=== PATIENT | male | born 1940 | race Caucasian/White ===

== ENCOUNTER 2017-05-16 18:14 | Inpatient (IN) | payer MEDICARE, OTHER ==
[2017-05-16 19:16] LABS: ADD MAN DIFF? NO
[2017-05-16 19:17] LABS: WHITE BLOOD COUNT 10.5 10^3/ul (4.8-10.8)
[2017-05-16 19:17] LABS: BASOPHIL # 0.1 10^3/ul (0.0-0.1); BASOPHILS % 0.6 % (0.0-2.0); EOSINOPHILS # 0.2 10^3/ul (0.0-0.5); EOSINOPHILS % 1.8 % (0.0-7.0); HEMATOCRIT 39.6 % (42.0-52.0); HEMOGLOBIN 13.2 g/dl (14.0-18.0); LYMPHOCYTES # 1.4 10^3/ul (0.8-2.9); LYMPHOCYTES % 13.7 % (15.0-51.0); MEAN CORPUSCULAR HEMOGLOBIN 31.4 pg (29.0-33.0); MEAN CORPUSCULAR HGB CONC 33.3 g/dl (32.0-37.0); MEAN CORPUSCULAR VOLUME 94.3 fl (82.0-101.0); MEAN PLATELET VOLUME 10.1 fl (7.4-10.4); MONOCYTE # 1.1 10^3/ul (0.3-0.9); MONOCYTES % 10.6 % (0.0-11.0); NEUTROPHIL # 7.7 10^3/ul (1.6-7.5); PLATELET COUNT 183 10^3/UL (140-415); RED CELL DISTRIBUTION WIDTH 12.7 % (11.5-14.5)
[2017-05-16] MEDS: SOD CHLORIDE 0.9% 1,000 ML IV ×3 (19:17→21:56)
[2017-05-16] MEDS: HYDROmorphONE 1 MG/ML SYG IV ×2 (19:17→21:56)
[2017-05-16] MEDS: LIDOCAINE 1% (MDV) 20 ML INJ SC (19:30)
[2017-05-16 19:33] LABS: INR 1.07; PT RATIO 1.1
[2017-05-16 19:35] LABS: ALANINE AMINOTRANSFERASE 29 IU/L (13-69); ALBUMIN 4.3 g/dl (3.3-4.9); ALBUMIN/GLOBULIN RATIO 1.34; ALKALINE PHOSPHATASE 65 IU/L (42-121); ANION GAP 16 (8-16); ASPARTATE AMINO TRANSFERASE 25 IU/L (15-46); BILIRUBIN,INDIRECT 1.2 mg/dl (0-1.1); BILIRUBIN,TOTAL 1.2 mg/dl (0.2-1.3); BLOOD UREA NITROGEN 27 mg/dl (7-20); CALCIUM 9.5 mg/dl (8.4-10.2); CARBON DIOXIDE 25 mmol/L (21-31); CHLORIDE 102 mmol/L (97-110); CREATININE 0.99 mg/dl (0.61-1.24); GLUCOSE 125 mg/dl (70-220); LIPASE 51 U/L (23-300); POTASSIUM 4.5 mmol/L (3.5-5.1); SODIUM 138 mmol/L (135-144); TOTAL PROTEIN 7.5 g/dl (6.1-8.1)
[2017-05-16 19:49] LABS: TROPONIN-I < 0.012 ng/ml (0.00-0.12)
[2017-05-16] MEDS ORDERED: FENTAnyl 50 MCG/ML VIAL (20:12)
[2017-05-16] MEDS ORDERED: LORAZEPAM 2 MG INJ (20:48)
[2017-05-16] MEDS: SOD CHLORIDE 0.9% 100 ML (21:05)
[2017-05-16] MEDS: IOHEXOL 100 ML (21:05)
[2017-05-16] MEDS: CEFTRIAXONE 1 GM/50 ML (PMX) 50 ML IVPB (21:35)
[2017-05-16] MEDS: FENTAnyl 50 MCG/ML VIAL IV ×2 (22:02→22:03)
[2017-05-16] MEDS: LORAZEPAM 2 MG INJ IV (22:02)
[2017-05-16] MEDS ORDERED: ONDANSETRON 4 MG INJ IV (22:30)
[2017-05-16] MEDS ORDERED: ACETAMINOPHEN 650MG/20.3ML CUP PO (22:30)
[2017-05-16] MEDS ORDERED: morphine 2 MG INJ IV (22:30)
[2017-05-17] MEDS: SOD CHLORIDE 0.9% 1,000 ML IV ×3 (00:08→16:51)
[2017-05-17] MEDS: PROPOFOL 100 ML IV (00:13)
[2017-05-17] MEDS: NACL 0.9% 3 ML SYG IV ×2 (00:14→20:47)
[2017-05-17] MEDS: SOD CHLORIDE 0.9% 100 ML (00:17)
[2017-05-17] MEDS: IOHEXOL 100 ML (00:49)
[2017-05-17] MEDS: HYDROmorphONE 0.5 MG/0.5 ML SYG IV ×7 (01:27→23:45)
[2017-05-17 01:29] LABS: HEMATOCRIT 27.1 % (42.0-52.0); HEMOGLOBIN 8.9 g/dl (14.0-18.0)
[2017-05-17 05:46] LABS: ADD MAN DIFF? NO
[2017-05-17 05:56] LABS: WHITE BLOOD COUNT 12.3 10^3/ul (4.8-10.8)
[2017-05-17 05:56] LABS: BASOPHILS % 0.3 % (0.0-2.0); EOSINOPHILS # 0.1 10^3/ul (0.0-0.5); EOSINOPHILS % 0.5 % (0.0-7.0); HEMATOCRIT 25.2 % (42.0-52.0); HEMOGLOBIN 8.5 g/dl (14.0-18.0); LYMPHOCYTES # 0.8 10^3/ul (0.8-2.9); LYMPHOCYTES % 6.7 % (15.0-51.0); MEAN CORPUSCULAR HEMOGLOBIN 32.3 pg (29.0-33.0); MEAN CORPUSCULAR HGB CONC 33.7 g/dl (32.0-37.0); MEAN CORPUSCULAR VOLUME 95.8 fl (82.0-101.0); MEAN PLATELET VOLUME 10.4 fl (7.4-10.4); MONOCYTE # 1.4 10^3/ul (0.3-0.9); MONOCYTES % 11.6 % (0.0-11.0); NEUTROPHIL # 9.9 10^3/ul (1.6-7.5); NEUTROPHILS % 80.5 % (39.0-77.0); PLATELET COUNT 159 10^3/UL (140-415); RED BLOOD COUNT 2.63 10^6/ul (4.70-6.10)
[2017-05-17 06:11] LABS: ALANINE AMINOTRANSFERASE 36 IU/L (13-69); ALBUMIN 2.6 g/dl (3.3-4.9); ALBUMIN/GLOBULIN RATIO 1.08; ALKALINE PHOSPHATASE 39 IU/L (42-121); ANION GAP 12 (8-16); ASPARTATE AMINO TRANSFERASE 20 IU/L (15-46); BILIRUBIN,INDIRECT 0.6 mg/dl (0-1.1); BILIRUBIN,TOTAL 0.6 mg/dl (0.2-1.3); BLOOD UREA NITROGEN 25 mg/dl (7-20); CALCIUM 7.2 mg/dl (8.4-10.2); CARBON DIOXIDE 21 mmol/L (21-31); CHLORIDE 111 mmol/L (97-110); GLUCOSE 119 mg/dl (70-220); POTASSIUM 5.3 mmol/L (3.5-5.1); SODIUM 139 mmol/L (135-144)
[2017-05-17 06:17] LABS: PHOSPHORUS 3.7 mg/dl (2.5-4.9)
[2017-05-17 06:17] LABS: MAGNESIUM 1.7 mg/dl (1.7-2.5)
[2017-05-17 07:58] LABS: AADO2 Arterial 116.2 mmHg (7.0-24.0); Allen Test ACCEPTAB; Arterial Base Excess -5.2 mmol/L (-3.0-3); Arterial Blood Gas Oxygen Sat 93.3 mmHG (95.0-100.0); Arterial COHb 0.3 % (0.0-3.0); Arterial Fraction of Oxyhgb 92.8 % (93.0-99.0); Arterial HCO3 20.5 mmol/L (22.0-26.0); Arterial MetHb 0.2 % (0.0-1.5); Arterial Total Hemglobin 9.9 g/dl (12.0-18.0); Arterial pCO2 40.4 mmhg (35-45); MODE NASAL CANNULA; Site Left Radial
[2017-05-17] MEDS: MAGNESIUM SULFATE 2 GM/50 ML 50 ML IVPB (10:44)
[2017-05-17 11:56] LABS: ADD UMIC NO; UR ASCORBIC ACID NEGATIVE (NEGATIVE); UR BILIRUBIN (Dip) NEGATIVE (NEGATIVE); UR BLOOD (Dip) NEGATIVE (NEGATIVE); UR CLARITY CLEAR (CLEAR); UR COLOR YELLOW (YELLOW); UR GLUCOSE (Dip) NEGATIVE (NEGATIVE); UR KETONES (Dip) 1+ mg/dL (NEGATIVE); UR LEUKOCYTE ESTERASE (Dip) NEGATIVE Leu/ul (NEGATIVE); UR NITRITE (Dip) NEGATIVE (NEGATIVE); UR SPECIFIC GRAVITY (Dip) 1.035 (1.003-1.030); UR TOTAL PROTEIN (Dip) NEGATIVE (NEGATIVE); UR UROBILINOGEN (Dip) NEGATIVE (NEGATIVE)
[2017-05-17] MEDS: DIPHENHYDRAMINE 50 MG CAP PO ×2 (14:50→20:46)
[2017-05-17 17:04] LABS: TYPE AND SCREEN 1
[2017-05-17 20:32] LABS: HEMATOCRIT 22.9 % (42.0-52.0); HEMOGLOBIN 7.9 g/dl (14.0-18.0)
[2017-05-17] MEDS: CEFTRIAXONE 1 GM/50 ML (PMX) 50 ML IVPB (20:45)
[2017-05-17] MEDS: MAGNESIUM HYDROXIDE 30ML CUP PO (20:46)
[2017-05-17] MEDS: ROSUVASTATIN CALCIUM 40 MG TABLET PO (22:49)
[2017-05-18] MEDS: SOD CHLORIDE 0.9% 1,000 ML IV ×3 (02:54→15:59)
[2017-05-18] MEDS: HYDROmorphONE 0.5 MG/0.5 ML SYG IV ×6 (02:58→21:12)
[2017-05-18] MEDS: DIPHENHYDRAMINE 50 MG CAP PO ×3 (02:58→20:25)
[2017-05-18 06:21] LABS: ADD MAN DIFF? NO
[2017-05-18 06:27] LABS: BASOPHIL # 0.1 10^3/ul (0.0-0.1); BASOPHILS % 0.5 % (0.0-2.0); EOSINOPHILS # 0.3 10^3/ul (0.0-0.5); EOSINOPHILS % 3.3 % (0.0-7.0); HEMATOCRIT 25.2 % (42.0-52.0); HEMOGLOBIN 8.5 g/dl (14.0-18.0); LYMPHOCYTES # 1.1 10^3/ul (0.8-2.9); LYMPHOCYTES % 11.9 % (15.0-51.0); MEAN CORPUSCULAR HEMOGLOBIN 31.6 pg (29.0-33.0); MEAN CORPUSCULAR HGB CONC 33.7 g/dl (32.0-37.0); MEAN CORPUSCULAR VOLUME 93.7 fl (82.0-101.0); MEAN PLATELET VOLUME 9.7 fl (7.4-10.4); MONOCYTES % 10.5 % (0.0-11.0); NEUTROPHIL # 6.7 10^3/ul (1.6-7.5); PLATELET COUNT 150 10^3/UL (140-415); RED BLOOD COUNT 2.69 10^6/ul (4.70-6.10); RED CELL DISTRIBUTION WIDTH 14.2 % (11.5-14.5)
[2017-05-18 06:27] LABS: WHITE BLOOD COUNT 9.2 10^3/ul (4.8-10.8)
[2017-05-18 07:03] LABS: ALANINE AMINOTRANSFERASE 33 IU/L (13-69); ALBUMIN 2.5 g/dl (3.3-4.9); ALBUMIN/GLOBULIN RATIO 1.04; ALKALINE PHOSPHATASE 45 IU/L (42-121); ANION GAP 9 (8-16); ASPARTATE AMINO TRANSFERASE 28 IU/L (15-46); BILIRUBIN,INDIRECT 0.8 mg/dl (0-1.1); BILIRUBIN,TOTAL 0.8 mg/dl (0.2-1.3); BLOOD UREA NITROGEN 20 mg/dl (7-20); CALCIUM 7.3 mg/dl (8.4-10.2); CARBON DIOXIDE 26 mmol/L (21-31); CHLORIDE 107 mmol/L (97-110); CREATININE 0.72 mg/dl (0.61-1.24); GLUCOSE 106 mg/dl (70-220); POTASSIUM 4.5 mmol/L (3.5-5.1); SODIUM 137 mmol/L (135-144); TOTAL PROTEIN 4.9 g/dl (6.1-8.1)
[2017-05-18] MEDS: ALTEPLASE (CATHFLO) 2 MG INJ CATHETER (12:33)
[2017-05-18 14:20] LABS: HEMATOCRIT 27.7 % (42.0-52.0); HEMOGLOBIN 9.4 g/dl (14.0-18.0)
[2017-05-18] MEDS: MAGNESIUM HYDROXIDE 30ML CUP PO (20:25)
[2017-05-18] MEDS: CEFTRIAXONE 1 GM/50 ML (PMX) 50 ML IVPB (20:25)
[2017-05-18] MEDS: ROSUVASTATIN CALCIUM 40 MG TABLET PO (20:25)
[2017-05-18] MEDS: DOCUSATE SODIUM 100 MG CAP PO (20:27)
[2017-05-18] MEDS: NACL 0.9% 3 ML SYG IV (20:33)
[2017-05-18 22:09] LABS: HEMATOCRIT 24.8 % (42.0-52.0); HEMOGLOBIN 8.6 g/dl (14.0-18.0)
[2017-05-19] MEDS: HYDROmorphONE 0.5 MG/0.5 ML SYG IV ×5 (00:25→16:36)
[2017-05-19] MEDS: SOD CHLORIDE 0.9% 1,000 ML IV ×3 (01:03→17:18)
[2017-05-19 04:54] LABS: AADO2 Arterial 90.9 mmHg (7.0-24.0); Allen Test ACCEPTAB; Arterial Base Excess -2.1 mmol/L (-3.0-3); Arterial Blood Gas Oxygen Sat 91.3 mmHG (95.0-100.0); Arterial COHb 0.3 % (0.0-3.0); Arterial Fraction of Oxyhgb 90.8 % (93.0-99.0); Arterial HCO3 21.8 mmol/L (22.0-26.0); Arterial MetHb 0.3 % (0.0-1.5); Arterial Total Hemglobin 8.7 g/dl (12.0-18.0); Arterial pCO2 33.8 mmhg (35-45); MODE NASAL CANNULA; Site Left Radial
[2017-05-19 06:16] LABS: ADD MAN DIFF? NO
[2017-05-19 06:20] LABS: BASOPHILS % 0.4 % (0.0-2.0); EOSINOPHILS # 0.4 10^3/ul (0.0-0.5); EOSINOPHILS % 3.9 % (0.0-7.0); HEMATOCRIT 24.8 % (42.0-52.0); HEMOGLOBIN 8.4 g/dl (14.0-18.0); LYMPHOCYTES # 0.9 10^3/ul (0.8-2.9); LYMPHOCYTES % 10.3 % (15.0-51.0); MEAN CORPUSCULAR HEMOGLOBIN 31.7 pg (29.0-33.0); MEAN CORPUSCULAR HGB CONC 33.9 g/dl (32.0-37.0); MEAN CORPUSCULAR VOLUME 93.6 fl (82.0-101.0); MEAN PLATELET VOLUME 9.4 fl (7.4-10.4); MONOCYTE # 0.7 10^3/ul (0.3-0.9); MONOCYTES % 7.4 % (0.0-11.0); NEUTROPHILS % 77.6 % (39.0-77.0); PLATELET COUNT 153 10^3/UL (140-415); RED BLOOD COUNT 2.65 10^6/ul (4.70-6.10); RED CELL DISTRIBUTION WIDTH 13.6 % (11.5-14.5)
[2017-05-19 06:42] LABS: ANION GAP 9 (8-16); BLOOD UREA NITROGEN 14 mg/dl (7-20); CALCIUM 7.3 mg/dl (8.4-10.2); CARBON DIOXIDE 24 mmol/L (21-31); CHLORIDE 108 mmol/L (97-110); CREATININE 0.66 mg/dl (0.61-1.24); GLUCOSE 99 mg/dl (70-220); POTASSIUM 4.5 mmol/L (3.5-5.1); SODIUM 136 mmol/L (135-144)
[2017-05-19] MEDS: DIPHENHYDRAMINE 50 MG CAP PO ×4 (09:04→22:30)
[2017-05-19] MEDS: DOCUSATE SODIUM 100 MG CAP PO ×2 (09:04→21:00)
[2017-05-19 13:41] LABS: HEMATOCRIT 24.5 % (42.0-52.0); HEMOGLOBIN 8.6 g/dl (14.0-18.0)
[2017-05-19 19:37] LABS: IMMEDIATE SPIN CROSSMATCH 1 4
[2017-05-19 20:27] LABS: ADD UMIC NO; UR ASCORBIC ACID NEGATIVE (NEGATIVE); UR BILIRUBIN (Dip) NEGATIVE (NEGATIVE); UR BLOOD (Dip) NEGATIVE (NEGATIVE); UR CLARITY CLEAR (CLEAR); UR COLOR YELLOW (YELLOW); UR GLUCOSE (Dip) NEGATIVE (NEGATIVE); UR KETONES (Dip) 1+ mg/dL (NEGATIVE); UR LEUKOCYTE ESTERASE (Dip) NEGATIVE Leu/ul (NEGATIVE); UR NITRITE (Dip) NEGATIVE (NEGATIVE); UR SPECIFIC GRAVITY (Dip) 1.012 (1.003-1.030); UR TOTAL PROTEIN (Dip) NEGATIVE (NEGATIVE); UR UROBILINOGEN (Dip) NEGATIVE (NEGATIVE)
[2017-05-19] MEDS: ROSUVASTATIN CALCIUM 40 MG TABLET PO (21:18)
[2017-05-19] MEDS: CEFTRIAXONE 1 GM/50 ML (PMX) 50 ML IVPB (21:19)
[2017-05-20] MEDS: HYDROmorphONE 0.5 MG/0.5 ML SYG IV ×5 (02:06→20:14)
[2017-05-20 03:38] LABS: ADD MAN DIFF? NO
[2017-05-20 04:01] LABS: ALANINE AMINOTRANSFERASE 52 IU/L (13-69); ALBUMIN 2.5 g/dl (3.3-4.9); ALKALINE PHOSPHATASE 51 IU/L (42-121); ANION GAP 9 (8-16); ASPARTATE AMINO TRANSFERASE 61 IU/L (15-46); BILIRUBIN,INDIRECT 0.6 mg/dl (0-1.1); BILIRUBIN,TOTAL 0.6 mg/dl (0.2-1.3); BLOOD UREA NITROGEN 14 mg/dl (7-20); CALCIUM 7.7 mg/dl (8.4-10.2); CARBON DIOXIDE 23 mmol/L (21-31); CHLORIDE 109 mmol/L (97-110); CREATININE 0.79 mg/dl (0.61-1.24); GLUCOSE 102 mg/dl (70-220); POTASSIUM 4.5 mmol/L (3.5-5.1); SODIUM 136 mmol/L (135-144)
[2017-05-20 04:33] LABS: BASOPHILS % 0.4 % (0.0-2.0); EOSINOPHILS # 0.7 10^3/ul (0.0-0.5); EOSINOPHILS % 7.8 % (0.0-7.0); HEMATOCRIT 27.2 % (42.0-52.0); HEMOGLOBIN 9.6 g/dl (14.0-18.0); LYMPHOCYTES # 1.1 10^3/ul (0.8-2.9); MEAN CORPUSCULAR HGB CONC 35.3 g/dl (32.0-37.0); MEAN CORPUSCULAR VOLUME 90.7 fl (82.0-101.0); MEAN PLATELET VOLUME 9.8 fl (7.4-10.4); MONOCYTE # 0.8 10^3/ul (0.3-0.9); MONOCYTES % 9.3 % (0.0-11.0); NEUTROPHIL # 6.3 10^3/ul (1.6-7.5); NEUTROPHILS % 70.1 % (39.0-77.0); PLATELET COUNT 180 10^3/UL (140-415); RED CELL DISTRIBUTION WIDTH 14.1 % (11.5-14.5)
[2017-05-20] MEDS: SOD CHLORIDE 0.9% 1,000 ML IV (04:59)
[2017-05-20] MEDS: PANTOPRAZOLE (EC) 40 MG TAB PO (06:09)
[2017-05-20 06:18] LABS: ANION GAP 8 (8-16); BLOOD UREA NITROGEN 14 mg/dl (7-20); CARBON DIOXIDE 24 mmol/L (21-31); CHLORIDE 107 mmol/L (97-110); CREATININE 0.76 mg/dl (0.61-1.24); GLUCOSE 103 mg/dl (70-220); POTASSIUM 4.7 mmol/L (3.5-5.1); SODIUM 134 mmol/L (135-144)
[2017-05-20] MEDS ORDERED: DEXAMETHASONE 4 MG/ML 1 ML INJ ×2 (07:00→22:27)
[2017-05-20] MEDS ORDERED: BUPIVACAINE 0.25%/EPI (MDV) 50 ML VIAL INJ (07:00)
[2017-05-20] MEDS ORDERED: ROCURONIUM 50 MG INJ ×2 (07:00→18:02)
[2017-05-20] MEDS: DIPHENHYDRAMINE 50 MG INJ IV ×2 (07:56→16:39)
[2017-05-20] MEDS: DOCUSATE SODIUM 100 MG CAP PO ×2 (09:00→20:15)
[2017-05-20] MEDS: DEXTROSE 5%-0.9% NACL 1,000 ML IV (09:27)
[2017-05-20] MEDS ORDERED: BUPIVACAINE 0.5% (SDV) 30 ML INJ (16:35)
[2017-05-20] MEDS ORDERED: LIDOCAINE 1%/EPI 30 ML INJ (16:36)
[2017-05-20] MEDS ORDERED: LIDOCAINE 0.5% (MDV) 50 ML INJ (16:39)
[2017-05-20] MEDS ORDERED: MINERAL OIL LIGHT 10 ML VIAL (16:46)
[2017-05-20] MEDS ORDERED: PROPOFOL 20 ML (18:02)
[2017-05-20] MEDS ORDERED: MIDAZOLAM 1 MG/ML 2 ML INJ (18:02)
[2017-05-20] MEDS ORDERED: LIDOCAINE 2% (SDV) 5 ML INJ (18:02)
[2017-05-20] MEDS: DIPHENHYDRAMINE 50 MG CAP PO (20:15)
[2017-05-20] MEDS: ROSUVASTATIN CALCIUM 40 MG TABLET PO (20:15)
[2017-05-20] MEDS: CEFTRIAXONE 1 GM/50 ML (PMX) 50 ML IVPB (20:15)
[2017-05-20] MEDS ORDERED: PHENYLephrine (100 MCG/ML) 5ML SYG ×3 (21:42→22:39)
[2017-05-20] MEDS ORDERED: ONDANSETRON 4 MG INJ (21:47)
[2017-05-20] MEDS ORDERED: FAMOTIDINE 20 MG INJ (21:47)
[2017-05-20] MEDS ORDERED: FENTAnyl 50 MCG/ML VIAL (21:57)
[2017-05-20] MEDS ORDERED: METOPROLOL 5 MG INJ (22:56)
[2017-05-20 23:01] LABS: IMMEDIATE SPIN CROSSMATCH 1 2
[2017-05-20] MEDS ORDERED: SUGAMMADEX SODIUM 200 MG/2 ML VIAL IV (23:43)
[2017-05-21] MEDS ORDERED: FENTAnyl 50 MCG/ML VIAL ×2 (00:02→00:09)
[2017-05-21] MEDS ORDERED: ACETAMINOPHEN 1000MG/100ML IV 100 ML (00:11)
[2017-05-21] MEDS ORDERED: MIDAZOLAM 1 MG/ML 2 ML INJ (00:15)
[2017-05-21] MEDS: DEXTROSE 5%-0.9% NACL 1,000 ML IV ×2 (00:58→20:29)
[2017-05-21] MEDS ORDERED: HYDROmorphONE 0.5 MG/0.5 ML SYG IV (01:00)
[2017-05-21] MEDS ORDERED: LABETALOL HCL 20MG INJ IV (01:00)
[2017-05-21] MEDS ORDERED: ONDANSETRON 4 MG INJ IV (01:00)
[2017-05-21] MEDS ORDERED: MEPERIDINE 25 MG INJ IV (01:00)
[2017-05-21] MEDS ORDERED: HALOPERIDOL 5 MG INJ IV (01:00)
[2017-05-21] MEDS: ALBUTEROL/IPRATROPIUM (NEB) 3 ML AMP NEB (01:16)
[2017-05-21] MEDS: DIPHENHYDRAMINE 50 MG INJ IV ×2 (05:37→23:32)
[2017-05-21] MEDS: hydrALAzine 20 MG INJ IV (05:38)
[2017-05-21 06:07] LABS: ADD MAN DIFF? NO
[2017-05-21] MEDS: HYDROmorphONE 0.5 MG/0.5 ML SYG IV ×7 (06:20→23:33)
[2017-05-21 06:21] LABS: ABNORMAL IP MESSAGE 1; BASOPHILS % 0.2 % (0.0-2.0); HEMATOCRIT 34.4 % (42.0-52.0); HEMOGLOBIN 12.5 g/dl (14.0-18.0); LYMPHOCYTES # 0.3 10^3/ul (0.8-2.9); LYMPHOCYTES % 2.7 % (15.0-51.0); MEAN CORPUSCULAR HEMOGLOBIN 31.2 pg (29.0-33.0); MEAN CORPUSCULAR HGB CONC 36.3 g/dl (32.0-37.0); MEAN CORPUSCULAR VOLUME 85.8 fl (82.0-101.0); MEAN PLATELET VOLUME 9.4 fl (7.4-10.4); MONOCYTE # 0.3 10^3/ul (0.3-0.9); MONOCYTES % 2.5 % (0.0-11.0); NEUTROPHIL # 12.1 10^3/ul (1.6-7.5); NEUTROPHILS % 94.2 % (39.0-77.0); PLATELET COUNT 201 10^3/UL (140-415); POSITIVE DIFF @See below; RED BLOOD COUNT 4.01 10^6/ul (4.70-6.10); RED CELL DISTRIBUTION WIDTH 15.1 % (11.5-14.5)
[2017-05-21 06:21] LABS: WHITE BLOOD COUNT 12.8 10^3/ul (4.8-10.8)
[2017-05-21 06:59] LABS: PHOSPHORUS 2.9 mg/dl (2.5-4.9)
[2017-05-21 06:59] LABS: MAGNESIUM 1.7 mg/dl (1.7-2.5)
[2017-05-21 07:13] LABS: ALANINE AMINOTRANSFERASE 46 IU/L (13-69); ALBUMIN 2.5 g/dl (3.3-4.9); ALBUMIN/GLOBULIN RATIO 0.83; ALKALINE PHOSPHATASE 58 IU/L (42-121); ANION GAP 11 (8-16); ASPARTATE AMINO TRANSFERASE 39 IU/L (15-46); BILIRUBIN,INDIRECT 0.9 mg/dl (0-1.1); BILIRUBIN,TOTAL 0.9 mg/dl (0.2-1.3); BLOOD UREA NITROGEN 13 mg/dl (7-20); CALCIUM 8.6 mg/dl (8.4-10.2); CARBON DIOXIDE 21 mmol/L (21-31); CHLORIDE 108 mmol/L (97-110); CREATININE 0.67 mg/dl (0.61-1.24); GLUCOSE 152 mg/dl (70-220); POTASSIUM 4.9 mmol/L (3.5-5.1); SODIUM 135 mmol/L (135-144); TOTAL PROTEIN 5.5 g/dl (6.1-8.1)
[2017-05-21] MEDS: PANTOPRAZOLE (EC) 40 MG TAB PO (09:25)
[2017-05-21] MEDS: DOCUSATE SODIUM 100 MG CAP PO ×2 (09:25→20:30)
[2017-05-21] MEDS: DIPHENHYDRAMINE 50 MG CAP PO (20:30)
[2017-05-21] MEDS: ROSUVASTATIN CALCIUM 40 MG TABLET PO (20:30)
[2017-05-21] MEDS: CEFTRIAXONE 1 GM/50 ML (PMX) 50 ML IVPB (20:30)
[2017-05-22] MEDS: HYDROmorphONE 0.5 MG/0.5 ML SYG IV ×7 (04:49→23:01)
[2017-05-22 04:57] LABS: ADD MAN DIFF? NO
[2017-05-22 05:03] LABS: ABNORMAL IP MESSAGE 1; BASOPHIL # 0.1 10^3/ul (0.0-0.1); BASOPHILS % 0.5 % (0.0-2.0); EOSINOPHILS # 0.2 10^3/ul (0.0-0.5); EOSINOPHILS % 1.3 % (0.0-7.0); HEMATOCRIT 34.9 % (42.0-52.0); LYMPHOCYTES # 1.2 10^3/ul (0.8-2.9); LYMPHOCYTES % 8.7 % (15.0-51.0); MEAN CORPUSCULAR HEMOGLOBIN 30.7 pg (29.0-33.0); MEAN CORPUSCULAR HGB CONC 34.4 g/dl (32.0-37.0); MEAN CORPUSCULAR VOLUME 89.3 fl (82.0-101.0); MEAN PLATELET VOLUME 9.2 fl (7.4-10.4); MONOCYTE # 1.5 10^3/ul (0.3-0.9); MONOCYTES % 11.1 % (0.0-11.0); NEUTROPHIL # 10.6 10^3/ul (1.6-7.5); NEUTROPHILS % 77.8 % (39.0-77.0); PLATELET COUNT 221 10^3/UL (140-415); POSITIVE DIFF @See below; RED BLOOD COUNT 3.91 10^6/ul (4.70-6.10); RED CELL DISTRIBUTION WIDTH 15.1 % (11.5-14.5)
[2017-05-22 05:03] LABS: WHITE BLOOD COUNT 13.6 10^3/ul (4.8-10.8)
[2017-05-22 05:16] LABS: ANION GAP 8 (8-16); BLOOD UREA NITROGEN 21 mg/dl (7-20); CALCIUM 8.4 mg/dl (8.4-10.2); CARBON DIOXIDE 25 mmol/L (21-31); CHLORIDE 106 mmol/L (97-110); CREATININE 0.73 mg/dl (0.61-1.24); GLUCOSE 119 mg/dl (70-220); MAGNESIUM 1.7 mg/dl (1.7-2.5); PHOSPHORUS 2.7 mg/dl (2.5-4.9); POTASSIUM 4.6 mmol/L (3.5-5.1); SODIUM 134 mmol/L (135-144)
[2017-05-22] MEDS: DIPHENHYDRAMINE 50 MG INJ IV (06:34)
[2017-05-22] MEDS: PANTOPRAZOLE (EC) 40 MG TAB PO (06:34)
[2017-05-22] MEDS: DOCUSATE SODIUM 100 MG CAP PO ×2 (08:27→20:48)
[2017-05-22] MEDS: DIPHENHYDRAMINE 50 MG CAP PO ×4 (10:15→23:20)
[2017-05-22] MEDS: ROSUVASTATIN CALCIUM 40 MG TABLET PO (20:48)
[2017-05-22] MEDS: ACETAMINOPHEN 325 MG TAB PO (20:48)
[2017-05-22] MEDS: CEFTRIAXONE 1 GM/50 ML (PMX) 50 ML IVPB (20:49)
[2017-05-23] MEDS: PANTOPRAZOLE (EC) 40 MG TAB PO (05:11)
[2017-05-23] MEDS: HYDROmorphONE 0.5 MG/0.5 ML SYG IV ×6 (05:12→21:28)
[2017-05-23] MEDS: DOCUSATE SODIUM 100 MG CAP PO ×2 (08:32→21:23)
[2017-05-23] MEDS: DIPHENHYDRAMINE 50 MG CAP PO ×2 (17:19→21:22)
[2017-05-23] MEDS: CEFTRIAXONE 1 GM/50 ML (PMX) 50 ML IVPB (21:49)
[2017-05-23] MEDS: ROSUVASTATIN CALCIUM 40 MG TABLET PO (21:49)
[2017-05-23] MEDS: MAGNESIUM SULFATE 2 GM/50 ML 50 ML IVPB (23:58)
[2017-05-24] MEDS: PANTOPRAZOLE (EC) 40 MG TAB PO (05:33)
[2017-05-24 07:54] LABS: ADD MAN DIFF? NO
[2017-05-24 08:09] LABS: WHITE BLOOD COUNT 12.2 10^3/ul (4.8-10.8)
[2017-05-24 08:09] LABS: BASOPHIL # 0.1 10^3/ul (0.0-0.1); BASOPHILS % 0.5 % (0.0-2.0); EOSINOPHILS # 0.5 10^3/ul (0.0-0.5); EOSINOPHILS % 3.8 % (0.0-7.0); HEMATOCRIT 35.6 % (42.0-52.0); HEMOGLOBIN 12.2 g/dl (14.0-18.0); LYMPHOCYTES # 0.9 10^3/ul (0.8-2.9); LYMPHOCYTES % 7.4 % (15.0-51.0); MEAN CORPUSCULAR HEMOGLOBIN 30.8 pg (29.0-33.0); MEAN CORPUSCULAR HGB CONC 34.3 g/dl (32.0-37.0); MEAN CORPUSCULAR VOLUME 89.9 fl (82.0-101.0); MEAN PLATELET VOLUME 9.6 fl (7.4-10.4); MONOCYTE # 1.1 10^3/ul (0.3-0.9); MONOCYTES % 9.1 % (0.0-11.0); NEUTROPHIL # 9.6 10^3/ul (1.6-7.5); NEUTROPHILS % 78.7 % (39.0-77.0); PLATELET COUNT 270 10^3/UL (140-415); RED BLOOD COUNT 3.96 10^6/ul (4.70-6.10); RED CELL DISTRIBUTION WIDTH 15.1 % (11.5-14.5)
[2017-05-24 08:26] LABS: ANION GAP 15 (8-16); BLOOD UREA NITROGEN 18 mg/dl (7-20); CALCIUM 8.3 mg/dl (8.4-10.2); CARBON DIOXIDE 28 mmol/L (21-31); CHLORIDE 100 mmol/L (97-110); CREATININE 0.75 mg/dl (0.61-1.24); GLUCOSE 95 mg/dl (70-220); MAGNESIUM 2.2 mg/dl (1.7-2.5); PHOSPHORUS 2.9 mg/dl (2.5-4.9); POTASSIUM 4.3 mmol/L (3.5-5.1); SODIUM 139 mmol/L (135-144)
[2017-05-24] MEDS: DOCUSATE SODIUM 100 MG CAP PO ×3 (09:00→21:49)
[2017-05-24] MEDS: HYDROmorphONE 0.5 MG/0.5 ML SYG IV ×3 (10:51→21:49)
[2017-05-24] MEDS: HYDROCODONE/APAP (5/325) TAB PO ×3 (12:45→17:36)
[2017-05-24] MEDS: MAGNESIUM HYDROXIDE 30ML CUP PO (12:46)
[2017-05-24] MEDS: METOPROLOL (XL) 25 MG TAB PO ×2 (14:45→21:49)
[2017-05-24] MEDS: DIPHENHYDRAMINE 50 MG CAP PO ×2 (17:38→21:48)
[2017-05-24] MEDS: LEVOFLOXACIN 750MG/D5W (PMX) 150 ML IVPB (17:45)
[2017-05-24] MEDS: ROSUVASTATIN CALCIUM 40 MG TABLET PO ×2 (22:30)
[2017-05-25] MEDS: PANTOPRAZOLE (EC) 40 MG TAB PO (05:39)
[2017-05-25 07:18] LABS: ADD MAN DIFF? NO
[2017-05-25 07:19] LABS: BASOPHILS % 0.4 % (0.0-2.0); EOSINOPHILS # 0.4 10^3/ul (0.0-0.5); EOSINOPHILS % 3.2 % (0.0-7.0); HEMATOCRIT 34.4 % (42.0-52.0); HEMOGLOBIN 11.5 g/dl (14.0-18.0); LYMPHOCYTES # 0.7 10^3/ul (0.8-2.9); LYMPHOCYTES % 6.8 % (15.0-51.0); MEAN CORPUSCULAR HEMOGLOBIN 30.1 pg (29.0-33.0); MEAN CORPUSCULAR HGB CONC 33.4 g/dl (32.0-37.0); MEAN CORPUSCULAR VOLUME 90.1 fl (82.0-101.0); MONOCYTE # 0.9 10^3/ul (0.3-0.9); MONOCYTES % 8.4 % (0.0-11.0); NEUTROPHIL # 8.7 10^3/ul (1.6-7.5); NEUTROPHILS % 80.6 % (39.0-77.0); PLATELET COUNT 285 10^3/UL (140-415); RED BLOOD COUNT 3.82 10^6/ul (4.70-6.10); RED CELL DISTRIBUTION WIDTH 14.7 % (11.5-14.5)
[2017-05-25 07:19] LABS: WHITE BLOOD COUNT 10.8 10^3/ul (4.8-10.8)
[2017-05-25 07:44] LABS: PHOSPHORUS 1.9 mg/dl (2.5-4.9)
[2017-05-25 07:50] LABS: ANION GAP 13 (8-16); BLOOD UREA NITROGEN 19 mg/dl (7-20); CALCIUM 7.9 mg/dl (8.4-10.2); CARBON DIOXIDE 26 mmol/L (21-31); CHLORIDE 102 mmol/L (97-110); CREATININE 0.71 mg/dl (0.61-1.24); GLUCOSE 181 mg/dl (70-220); MAGNESIUM 2.1 mg/dl (1.7-2.5); POTASSIUM 3.9 mmol/L (3.5-5.1); SODIUM 137 mmol/L (135-144)
[2017-05-25] MEDS: DOCUSATE SODIUM 100 MG CAP PO ×2 (10:15→20:54)
[2017-05-25] MEDS: HYDROCODONE/APAP (5/325) TAB PO ×2 (10:16→17:39)
[2017-05-25] MEDS: METOPROLOL (XL) 25 MG TAB PO ×2 (10:17→20:55)
[2017-05-25] MEDS: MAGNESIUM HYDROXIDE 30ML CUP PO (10:21)
[2017-05-25] MEDS: LEVOFLOXACIN 750MG/D5W (PMX) 150 ML IVPB (15:53)
[2017-05-25] MEDS: DIPHENHYDRAMINE 50 MG CAP PO ×2 (17:40→20:56)
[2017-05-25] MEDS: ROSUVASTATIN CALCIUM 40 MG TABLET PO (20:55)
[2017-05-25] MEDS: HYDROmorphONE 0.5 MG/0.5 ML SYG IV (23:19)
[2017-05-26] MEDS: LEVOFLOXACIN 750 MG TABLET PO (05:05)
[2017-05-26] MEDS: PANTOPRAZOLE (EC) 40 MG TAB PO (05:05)
[2017-05-26] MEDS: HYDROCODONE/APAP (5/325) TAB PO ×2 (05:06→09:24)
[2017-05-26 06:30] LABS: ADD MAN DIFF? NO
[2017-05-26 06:35] LABS: BASOPHIL # 0.1 10^3/ul (0.0-0.1); BASOPHILS % 0.7 % (0.0-2.0); EOSINOPHILS # 0.5 10^3/ul (0.0-0.5); EOSINOPHILS % 4.7 % (0.0-7.0); LYMPHOCYTES # 1.1 10^3/ul (0.8-2.9); LYMPHOCYTES % 11.2 % (15.0-51.0); MEAN CORPUSCULAR HEMOGLOBIN 30.6 pg (29.0-33.0); MEAN CORPUSCULAR HGB CONC 33.3 g/dl (32.0-37.0); MEAN CORPUSCULAR VOLUME 91.8 fl (82.0-101.0); MEAN PLATELET VOLUME 9.1 fl (7.4-10.4); MONOCYTE # 1.2 10^3/ul (0.3-0.9); NEUTROPHILS % 70.7 % (39.0-77.0); PLATELET COUNT 326 10^3/UL (140-415); RED BLOOD COUNT 3.92 10^6/ul (4.70-6.10); RED CELL DISTRIBUTION WIDTH 14.7 % (11.5-14.5)
[2017-05-26 07:45] LABS: ANION GAP 11 (8-16); BLOOD UREA NITROGEN 19 mg/dl (7-20); CARBON DIOXIDE 27 mmol/L (21-31); CHLORIDE 105 mmol/L (97-110); CREATININE 0.79 mg/dl (0.61-1.24); GLUCOSE 94 mg/dl (70-220); MAGNESIUM 2.1 mg/dl (1.7-2.5); PHOSPHORUS 2.5 mg/dl (2.5-4.9); POTASSIUM 4.1 mmol/L (3.5-5.1); SODIUM 139 mmol/L (135-144)
[2017-05-26] MEDS: DOCUSATE SODIUM 100 MG CAP PO (09:20)
[2017-05-26] MEDS: METOPROLOL (XL) 25 MG TAB PO (09:26)
== END 2017-05-26 16:33 | disposition home or self-care (01) | DRG 163 ==
LOC: ICU 05-19 08:45 → MS4 05-23 17:41 → E/R 18:14 → ICU 21:37
PROC: 0BNL4ZZ Release Left Lung, Percutaneous Endoscopic Approach (ICD-10-PCS; principal; 2017-05-20 17:00)
PROC: 0W9B30Z Drainage of Left Pleural Cavity with Drainage Device, Percutaneous Approach (ICD-10-PCS; 2017-05-20 20:35)
PROC: 30233R1 Transfusion of Nonautologous Platelets into Peripheral Vein, Percutaneous Approach (ICD-10-PCS; 2017-05-20 20:35)
PROC: 30233N1 Transfusion of Nonautologous Red Blood Cells into Peripheral Vein, Percutaneous Approach (ICD-10-PCS; 2017-05-20 20:35)
DX: S27.2XXA Traumatic hemopneumothorax, initial encounter (principal); J18.9 Pneumonia, unspecified organism; S22.42XA Multiple fractures of ribs, left side, initial encounter for closed fracture; D62 Acute posthemorrhagic anemia; J44.9 Chronic obstructive pulmonary disease, unspecified; J43.2 Centrilobular emphysema; W11.XXXA Fall on and from ladder, initial encounter; Y93.H2 Activity, gardening and landscaping; Y92.007 Garden or yard of unspecified non-institutional (private) residence as the place of occurrence of the external cause; E78.5 Hyperlipidemia, unspecified; I25.10 Atherosclerotic heart disease of native coronary artery without angina pectoris; Z85.51 Personal history of malignant neoplasm of bladder; Z85.46 Personal history of malignant neoplasm of prostate; D72.829 Elevated white blood cell count, unspecified
CPT/HCPCS: 36415; 36430; 36600; 71045; 71250; 71275; 76604; 80048; 80053; 81003; 82803; 83690; 83735; 84100; 84484; 85014; 85018; 85025; 85610; 86850; 86900; 86901; 86920; 87081; 87086; 93005; 94640; 94770; 96374; 96375; 97116; 97162; 97530; 99291-25

== ENCOUNTER → 2017-08-15 | Outpatient (CLI) | payer MEDICARE, OTHER | END | disposition home or self-care (01) | LOC: RAD 10:45 | DX: S22.32XD Fracture of one rib, left side, subsequent encounter for fracture with routine healing (principal); X58.XXXD Exposure to other specified factors, subsequent encounter | CPT/HCPCS: 71046 ==

== ENCOUNTER → 2017-12-12 | Outpatient (CLI) | payer MEDICARE, OTHER | END | disposition home or self-care (01) | LOC: PUL 09:53 | DX: J44.9 Chronic obstructive pulmonary disease, unspecified (principal) | CPT/HCPCS: 94060; 94664; 94726; 94729 ==